=== PATIENT | female | born 1985 | race Two or more races ===

== ENCOUNTER 2017-09-30 12:25 | Emergency (ER) | payer OTHER ==
[~2017-09-30] VITALS: Ht 154.9 cm; Wt 54.4 kg
[2017-09-30 12:40] VITALS: BP 101/64
== END 2017-09-30 16:08 | disposition left against medical advice (07) ==
LOC: ER 12:25
DX: O9A.212 Injury, poisoning and certain other consequences of external causes complicating pregnancy, second trimester (principal); S20.229A Contusion of unspecified back wall of thorax, initial encounter; Z3A.18 18 weeks gestation of pregnancy; W18.39XA Other fall on same level, initial encounter; Y93.89 Activity, other specified; Y92.89 Other specified places as the place of occurrence of the external cause; Y99.8 Other external cause status

== ENCOUNTER 2018-01-06 10:30 | Observation (INO) | payer MEDICAID | END 2018-01-06 11:50 | disposition home or self-care (01) | DRG 566 | LOC: LDRP 10:30 | PROVIDERS: ADMIT Obstetrics & Gynecology; ATTEND Obstetrics & Gynecology | DX: O42.913 Preterm premature rupture of membranes, unspecified as to length of time between rupture and onset of labor, third trimester (principal); O26.893 Other specified pregnancy related conditions, third trimester; M54.9 Dorsalgia, unspecified; Z3A.31 31 weeks gestation of pregnancy | CPT/HCPCS: 76815; G0378; 59025; 81002 ==

== ENCOUNTER 2018-01-21 10:00 | Observation (INO) | payer MEDICAID | END 2018-01-21 12:00 | disposition home or self-care (01) | DRG 563 | LOC: LDRP 10:00 | PROVIDERS: ADMIT Obstetrics & Gynecology; ATTEND Obstetrics & Gynecology | DX: O60.03 Preterm labor without delivery, third trimester (principal); Z3A.33 33 weeks gestation of pregnancy | CPT/HCPCS: 59025; 76818; 81002; G0378 ==

== ENCOUNTER 2018-01-28 10:20 | Observation (INO) | payer MEDICAID ==
[2018-01-28] MEDS ORDERED: TERBUTALINE SULFATE 1 MG/ML 1ML VIAL SC ONE (12:15)
== END 2018-01-28 12:30 | disposition home or self-care (01) | DRG 566 ==
LOC: LDRP 10:20
PROVIDERS: ADMIT Specialist; ATTEND Specialist
DX: O26.893 Other specified pregnancy related conditions, third trimester (principal); O62.9 Abnormality of forces of labor, unspecified; R77.2 Abnormality of alphafetoprotein; Z3A.34 34 weeks gestation of pregnancy
CPT/HCPCS: 59025; 76818; 81002; 96372; G0378; J3105

== ENCOUNTER 2018-02-22 21:46 | Observation (INO) | payer MEDICAID ==
[2018-02-22 22:24] LABS: Urine Bacteria FEW /hpf (None Seen); Urine Blood Negative /uL (Negative); Urine Mucus FEW (None Seen); Urine Specific Gravity 1.035 (1.001-1.035); Urine WBC 36 /hpf (0 - 5)
[2018-02-22] MEDS ORDERED: PREN-96 PO (22:32)
== END 2018-02-22 23:11 | disposition home or self-care (01) | DRG 566 ==
LOC: LDRP 21:46
PROVIDERS: ADMIT Specialist; ATTEND Specialist
DX: O42.92 Full-term premature rupture of membranes, unspecified as to length of time between rupture and onset of labor (principal); O62.9 Abnormality of forces of labor, unspecified; Z3A.38 38 weeks gestation of pregnancy
CPT/HCPCS: 59025; 81001; 81002; 87086; G0378

== ENCOUNTER 2018-03-01 20:07 | Inpatient (IN) | payer MEDICAID ==
[~2018-03-01] VITALS: Ht 154.9 cm; Wt 68.0 kg
[2018-03-01] MEDS: LACTATED RINGER'S 1,000 ML IV SCH (07:20)
[~2018-03-01 20:07] MED LIST: PREN-96 PO
[2018-03-01] MEDS ORDERED: LACT. RINGERS/OXYTOCIN 20UNITS 1,000 ML IV SCH (20:12)
[2018-03-01] MEDS ORDERED: DERMOPLAST 60ML BOTTLE TOP PRN (20:15)
[2018-03-01] MEDS ORDERED: METHYLERGONOVINE MALEATE 0.2 MG/ML AMP IM PRN (20:15)
[2018-03-01] MEDS ORDERED: WITCH HAZEL-GLYCERIN PAD TOP PRN (20:15)
[2018-03-01] MEDS ORDERED: NALBUPHINE HCL 10 MG/1ml INJECTION IV PRN (20:15)
[2018-03-01] MEDS ORDERED: PHISODERM TOP SOLN 240ML BTL TOP PRN (20:15)
[2018-03-01] MEDS ORDERED: LIDOCAINE 2% (LOCAL ANESTH.) PF 5ml SDV ID ONE (20:15)
[2018-03-01] MEDS ORDERED: FERR-7 PO (20:47)
[2018-03-01 21:25] LABS: Basophils # (auto) 0 uL; Basophils % (auto) 0.2 % (0.0-2.0); Eosinophils # (auto) 0.1 uL; Eosinophils % (auto) 1.2 % (0.0-7.0); Hematocrit 35.3 % (36.0-46.0); Hemoglobin 11.7 g/dL (12.2-16.2); Lymphocytes # (auto) 2.4 uL; Mean Corpuscular Hemoglobin 30.7 pg (28.0-32.0); Mean Corpuscular Hgb Conc. 33.2 g/dL (32.0-36.0); Mean Corpuscular Volume 92.5 fL (80.0-100.0); Monocytes # (auto) 0.8 uL; Monocytes % (auto) 6.2 % (0.0-12.0); Neutrophils # (auto) 9.2 uL; Neutrophils % (auto) 73.4 % (37.0-80.0); Nucleated Red Blood Cells % 0.1 %; Platelet Count (auto) 326 10^3/uL (140-450); Red Blood Cells 3.82 10^6/uL (4.0-5.20); Red Cell Distribution Width 14.3 % (11.8-14.3); White Blood Cell 12.6 10^3/uL (4.4-10.8)
[2018-03-01 21:35] LABS: Urine Bacteria MOD /hpf (None Seen); Urine Blood Negative /uL (Negative); Urine Hyaline Cast FEW /lpf (0 - 2); Urine Mucus FEW (None Seen); Urine Specific Gravity 1.032 (1.001-1.035); Urine WBC 6 /hpf (0 - 5)
[2018-03-01 21:43] LABS: INR 0.86 (0.9-1.15); Partial Thromboplastin Time 27.6 sec (22.64-33.71); Prothrombin Time 9.4 sec (9.37-12.3)
[2018-03-01 21:46] LABS: Calcium 8.5 mg/dL (8.5-10.1); Potassium 3.8 mmol/L (3.5-5.1)
[2018-03-01 21:50] LABS: Albumin 2.6 g/dL (3.4-5.0); BUN/Creatinine Ratio 19.3
[2018-03-01 21:53] LABS: Bilirubin, Total 0.3 mg/dL (0.2-1.0); Total Protein 6.7 g/dL (6.4-8.2)
[2018-03-02] MEDS ORDERED: BUTORPHANOL TARTRATE 2 MG/1 ML VIAL ONE (03:57)
[2018-03-02] MEDS ORDERED: BUTORPHANOL TARTRATE 2 MG/1 ML VIAL IV ONE (04:00)
[2018-03-02] MEDS: LACTATED RINGER'S 1,000 ML IV SCH ×2 (07:30→12:12)
[2018-03-02] MEDS ORDERED: LIDOCAINE 1% (LOCAL ANESTH.) PF 5ml SDV IJ ONE (07:30)
[2018-03-02] MEDS ORDERED: fentaNYL CITRATE 100 MCG/2 ML VL IV ONE (08:15)
[2018-03-02] MEDS ORDERED: fentaNYL W ROPIVACAINE 150 ML EPI SCH ×2 (08:15→09:00)
[2018-03-02] MEDS ORDERED: ePHEDrine SULFATE 50 MG/ML AMP IV ONE ×2 (08:15→09:00)
[2018-03-02] MEDS ORDERED: LIDOCAINE HCL 2 %PF INJ 10ML AMP IJ ONE (08:15)
[2018-03-02] MEDS ORDERED: NALOXONE HCL 0.4 MG/ML VIAL IV ONE ×2 (08:15→09:00)
[2018-03-02] MEDS ORDERED: SODIUM CHLORIDE 0.9% 500 ML IV PRN (08:56)
[2018-03-02] MEDS ORDERED: LACT. RINGERS/OXYTOCIN 20UNITS 500 ML IV ONE (11:04)
[2018-03-02] MEDS ORDERED: ACETAMINOPHEN 325 MG TAB PO PRN (11:15)
[2018-03-02] MEDS ORDERED: METHYLERGONOVINE MALEATE 0.2 MG/ML AMP IM ONE (11:15)
[2018-03-02] MEDS ORDERED: ONDANSETRON HCL 4 MG/2 ML VIAL IV PRN (12:00)
[2018-03-02] MEDS ORDERED: ceFAZolin 1GM/100ML 100 ML IV ONE (12:09)
[2018-03-02] MEDS ORDERED: ONDANSETRON HCL 4 MG/2 ML VIAL ONE (12:09)
[2018-03-02] MEDS: ceFAZolin 1GM/100ML 50 ML IV SCH ×2 (12:14→20:09)
[2018-03-02] MEDS ORDERED: ceFAZolin 1GM/100ML 50 ML IV SCH (14:00)
[2018-03-02] MEDS: IBUPROFEN 600 MG TAB PO PRN ×2 (14:32→19:00)
[2018-03-02 15:30] VITALS: BP 101/54
[2018-03-02 19:14] VITALS: BP 103/57
[2018-03-02 23:00] VITALS: BP 93/52
[2018-03-03] MEDS: IBUPROFEN 600 MG TAB PO PRN (01:28)
[2018-03-03 03:34] VITALS: BP 95/52
[2018-03-03] MEDS: ceFAZolin 1GM/100ML 50 ML IV SCH (04:09)
[2018-03-03 07:20] VITALS: BP 92/55
[2018-03-03 11:05] VITALS: BP 129/79
== END 2018-03-03 12:30 | disposition home or self-care (01) | DRG 560 ==
LOC: LDRP 20:07
PROVIDERS: ADMIT Obstetrics & Gynecology; ATTEND Obstetrics & Gynecology
PROC: 0HQ9XZZ Repair Perineum Skin, External Approach (ICD-10-PCS; principal; 2018-03-02)
PROC: 10E0XZZ Delivery of Products of Conception, External Approach (ICD-10-PCS; 2018-03-02)
PROC: 3E033VJ Introduction of Other Hormone into Peripheral Vein, Percutaneous Approach (ICD-10-PCS; 2018-03-02)
PROC: 00HU33Z Insertion of Infusion Device into Spinal Canal, Percutaneous Approach (ICD-10-PCS; 2018-03-02)
PROC: 3E0R3BZ Introduction of Anesthetic Agent into Spinal Canal, Percutaneous Approach (ICD-10-PCS; 2018-03-02)
DX: O70.0 First degree perineal laceration during delivery (principal); Z37.0 Single live birth; Z3A.39 39 weeks gestation of pregnancy
CPT/HCPCS: 36415; 51702; 59025; 59409; 62282; 80053; 81001; 85025; 85610; 85730; 86850; 86900; 86901; 96365; 96366; 96374; J0690; J2405; J2590; J3010

== ENCOUNTER 2022-06-17 04:51 | Emergency (ER) | payer MEDICAID ==
[~2022-06-17] VITALS: Ht 154.9 cm; Wt 49.0 kg
[~2022-06-17 04:51] MED LIST changes: +FERR-7 PO
[2022-06-17 04:57] VITALS: BP 141/97
== END 2022-06-17 06:54 | disposition home or self-care (01) ==
LOC: ER 04:51
DX: S00.03XA Contusion of scalp, initial encounter (principal); W22.8XXA Striking against or struck by other objects, initial encounter; Y93.89 Activity, other specified; Y92.89 Other specified places as the place of occurrence of the external cause; Y99.8 Other external cause status